=== PATIENT | female | born 1990 | race Two or more races ===

== ENCOUNTER 2025-06-08 18:22 | Emergency (ER) | payer MEDICAID, SELFPAY ==
[2025-06-08 18:45] VITALS: BP 126/80; PULSE 78; RESP 18; TEMP 36.9; O2SAT 99; BMI 25.4
--- NOTE | 2025-06-08 18:50 | XR_ITS ---
Examination: Hand, left 2 views Technique: Hand AP, lateral 2 views. Date and time of exam: June 08, 2025, 1852 hrs. Indications: Injury to the hand today with third digit pain. Findings: No acute fracture. No dislocation Soft tissue swelling about the distal phalanx third digit Impression: No acute fracture
--- NOTE | 2025-06-08 18:51 | PD.EDHAND ---
Upper Extremity Injury RME/HPI General Chief Complaint: Hand/Wrist Problems Stated Complaint: MIDDLE RIGHT FINGER INJURY Time Seen by Provider: 06/08/25 18:47 Arrival date/time: 06/08/25 18:22 35-year-old female reports with complaints of right third digit pain bruising and swelling. Patient states that she closed her finger in the dresser drawer. Patient is wearing acrylic nails and she is uncertain if the acrylic has ripped away from the finger or if the finger is broken. She has not take any medications for pain. She denies numbness or tingling but reports difficulty flexing the DIP Limitations: no limitations Related Data Home Medications ?Medication ?Instructions ?Recorded ?Confirmed No Known Home Medications 11/18/22 11/18/22 Allergies Allergy/AdvReac Type Severity Reaction Status Date / Time No Known Allergies Allergy Verified 06/08/25 18:23 Review of Systems Musculoskeletal Musculoskeletal: Reports arthralgias, Reports joint swelling, Reports limited range of motion, Denies numbness and Denies tingling Integumentary/Breasts Skin/Breast: Reports unusual bruising and Reports wounds Neurologic Neurologic: Denies numbness and Denies tingling Past Medical History Past Medical History NEUROLOGIC: Negative Neurological Disorders or Seizures CARDIAC: Negative Cardiac Disorders or Congestive Heart Failure RESPIRATORY: Negative Chronic Obstructive Pulmonary Disease (COPD) GASTROINTESTINAL: Negative Gastrointestinal Disorders GENITOURINARY: Negative Genitourinary Disorders or Renal Disease REPRODUCTIVE: Positive Previous Pregnancies MUSCULOSKELETAL: Negative Musculoskeletal Disorders ENDOCRINE: Negative Endocrine Disorders, Diabetes Mellitus Type 1 or Diabetes Mellitus Type 2 HEMATOLOGIC: Negative Blood Disorders OTHER HISTORY: Positive Chicken Pox; Negative Blood Transfusions, Anesthesia Reactions or Cancer Surgical History SURGICAL: Positive Tubal Ligation Social History SMOKING STATUS: Never smoker SUBSTANCE USE: does not use ED Exam General Limitations: Present no limitations General appearance: Present alert and in no apparent distress Expanded Upper Extremity Exam Forearm/Wrist exam: Present normal inspection and full ROM Hand exam: Present tenderness and other (Right third digit bleeding from the nail unable to fully visualize as patient is wearing); Absent full ROM (Decreased flexion of the DIP) or ecchymosis Neurosensory exam: Normal radial nerve and ulnar nerve Vascular exam: Normal radial pulse Neurological Exam Neurological exam: Present alert, oriented X3 and CN II-XII intact Psychiatric Psychiatric exam: Present normal affect and normal mood Skin Skin exam: Present warm, dry, intact and normal color Course Quality Measures none Orders Category Date Time Status XR hand RT 2V Stat Exams 06/08/25 18:50 Completed Vital Signs Vital signs: Vital Signs Temperature 98.5 F 06/08/25 18:45 Pulse Rate 78 06/08/25 18:45 Respiratory Rate 18 06/08/25 18:45 Blood Pressure 126/80 06/08/25 18:45 Pulse Oximetry (%) 99 06/08/25 18:45 Oxygen Delivery Method Room Air 06/08/25 18:45 Extremity Injury Patient data External records reviewed:: [facility] previous records Clinical information provided by:: patient Social determinants that could affect healthcare access:: none Patient has the following chronic illnesses:: none How is presenting disease/condition affected by chronic disease/condition?: no chronic disease Evaluation data The following diagnostics were reviewed and interpreted by me:: radiology exam(s) Lab and/or radiology exams considered but not ordered:: none Interpretation Summary: negative for fractures or dislocations Medications / Prescriptions Medications or Prescriptions considered but not ordered:: none Medication administrations:: none Consultations Consultation(s) initiated? (list below): No Diagnosis Upper Extremity Injury Differential Diagnosis: finger sprain, dislocation of finger and fracture of hand Most likely diagnosis given after review of the tests above:: finger contusion Admission Indicated Admission indicated?: not indicated Admission Request Was there a request for admission?: No Disposition Plan Disposition Plan: Discharge Discharge Attestation Discharge Attestation: The patient and all family members were given an opportunity to ask questions and understood the discharge instructions. Discharge instructions specifically effects, indications for sooner follow up or return to the emergency department, and the expected course of current diagnosis. Patient condition: Stable Discharge Plan Plan Patient Disposition: HOME (Self Care) Prescriptions/Referrals Prescriptions/Med Rec: No Action No Known Home Medications Referrals: No Primary/Family,Physician [Primary Care Provider] - In 1 week Problem List Clinical Impression: Contusion of right middle finger with damage to nail Patient/Caregiver Discharge Instructions Discharge Activity: activity as tolerated Education Materials: ED Finger Contusion Additional Instructions: Keep the area clean and dry remove the acrylic to help heal the finger primary care provider as needed in 3 to 5 days Print Language: Citizen Of [place] Stand Alone Forms: Shikha Award Info., Patient Portal Info Letter
== END 2025-06-08 19:57 | disposition home or self-care (01) ==
PROVIDERS: Emergency Provider Emergency Medicine
DX: S60.131A Contusion of right middle finger with damage to nail, initial encounter (principal); W23.0XXA Caught, crushed, jammed, or pinched between moving objects, initial encounter
CPT/HCPCS: 73120; 99284